=== PATIENT | female | born 1960 | race Asian ===

== ENCOUNTER 2018-09-24 22:32 | Inpatient (IN) | payer OTHER ==
[~2018-09-24] VITALS: Ht 152.4 cm; Wt 41.2 kg
[2018-09-24 23:37] VITALS: Ht 152.4 cm; Wt 41.2 kg
[2018-09-24 23:38] VITALS: BP 122/58; PULSE 68; RESP 18
--- NOTE | 2018-09-25 00:19 | HP ---
Date/Time of Note Date/Time of Note DATE: 09/25/18 TIME: 00:16 Assessment/Plan VTE Prophylaxis Risk score (from Nsg)>0 risk: 1 SCD applied (from Nsg): Yes Pharmacological prophylaxis: heparin Lines/Catheters IV Catheter Type (from Nrsg): Saline Lock Assessment/Plan Assessment/Plan 58-year-old female with no significant past medical history transferred from a [facility] for insurance reason for management of left femoral neck fracture, which is a result of a fall. PLAN -Pain management -Ortho consult -DVT prophylaxis HPI/ROS Admit Date/Time Admit Date/Time Sep 24, 2018 at 23:12 Hx of Present Illness This is a 58-year-old female with no significant past medical history who initially presented to [facility] complaining of left lower extremity pain status post fall. Patient initially fell 3 weeks ago hurting her left leg. An x-ray was done by her PCP and patient has been taking tramadol for pain. She fell again yesterday exacerbating pain on the same left lower extremity. X- ray and CT pelvis at [place] shows left femoral neck fracture. Patient was transferred to [facility] for insurance reason. PMH/Family/Social Past Medical History Past Surgical Hx: other (See HPI) Family History Significant Family History: no pertinent family hx Social History Alcohol Use: other Smoking Status: Never smoker Drug Use: none Exam/Review of Systems Vital Signs Exam Constitutional: No acute distress. Head: normocephalic, atraumatic Eyes: EOMI, PERRL Respiratory: clear to auscultation, normal air movement Cardiovascular: regular rate and rhythm, nl pulses Gastrointestinal: soft, Extremities: nl pulse Coded Allergies: No Known Allergy (Unverified , 09/24/18) Social History Smoking Status: Never smoker Exam/Review of Systems Vital Signs Vitals Vital Signs Date Temp Pulse Resp B/P (MAP) Pulse Ox O2 O2 Flow FiO2 Time Delivery Rate 09/24/18 98.2 68 18 122/58 95 Room Air 23:38 (79) Intake and Output 09/24/18 09/24/18 09/25/18 1515:00 23:00 07:00 IntakeIntake Total 200 ml OutputOutput Total 200 ml BalanceBalance 0 ml MALLORIE COLE MD Sep 25, 2018 00:19
[2018-09-25] MEDS ORDERED: NACL 0.9% 3 ML SYG IV SCH (00:30)
[2018-09-25] MEDS ORDERED: HYDROCODONE/APAP (5/325) TAB PO PRN (00:30)
[2018-09-25] MEDS ORDERED: ACETAMINOPHEN 325 MG TAB PO PRN (00:30)
[2018-09-25] MEDS ORDERED: ONDANSETRON 4 MG INJ IV PRN (00:30)
[2018-09-25 07:21] VITALS: BP 120/60; PULSE 74; RESP 18
[2018-09-25] MEDS: HEPARIN 5,000 UNIT/1 ML VIAL SC SCH ×2 (10:43→20:39)
[2018-09-25 13:14] VITALS: BP 117/58; PULSE 74; RESP 18
[2018-09-25] MEDS: HYDROCODONE/APAP (5/325) TAB PO PRN (13:39)
[2018-09-25] MEDS ORDERED: POTASSIUM CHLORIDE (SR) 20 MEQ TAB PO STA (13:47)
--- NOTE | 2018-09-25 13:48 | PN ---
Date/Time of Note Date/Time of Note DATE: 09/25/18 TIME: 13:47 Assessment/Plan VTE Prophylaxis Risk score (from Ns)>0 risk: 7 SCD applied (from [facility]): No SCD contraindicated: other Pharmacological prophylaxis: heparin Lines/Catheters IV Catheter Type (from [facility] [place]): Saline Lock Urinary Cath still in place: No Assessment/Plan Hospital Course S: Patient had no acute events overnight, apparently started on diet yesterday. Awaiting orthopedic surgery consult. O: VS- see below PE: General: lying in bed, answering questions appropriately, no acute distress HEENT: Atraumatic, normocephalic. Moist mucous membranes, clear oropharynx Neck: Supple with full range of motion. No rigidity or meningismus Lungs: Clear to auscultation bilaterally no crackles rales or wheezing Heart: Normal S1-S2, Regular rhythm and rate. No murmur, S3, or S4 Abdomen: Soft , nontender, nondistended , bowel sounds are present. No guarding no rebound tenderness Extremities: Decreased range of motion left lower extremity Neurologic: No focal deficits A/P: 58-year-old female with no significant past medical history who initially presented to [facility] complaining of left lower extremity pain status post fall, found with left femoral neck fracture. #: Status post fall: Again found with subsequent left femoral neck fracture -Continue IV fluids, pain control medications, still waiting for official orthopedic surgery consult -follow-up their recommendations -We will also consult PT and OT teams Result Diagram: 09/25/18 0446 09/25/18 0446 Results 24hrs Laboratory Tests Test 09/25/18 04:46 White Blood Count 5.5 Red Blood Count 3.53 L Hemoglobin 10.8 L Hematocrit 32.6 L Mean Corpuscular Volume 92.4 Mean Corpuscular Hemoglobin 30.6 Mean Corpuscular Hemoglobin Concent 33.1 Red Cell Distribution Width 12.5 Platelet Count 249 Mean Platelet Volume 10.1 Immature Granulocytes % 0.200 Neutrophils % 56.1 Lymphocytes % 29.5 Monocytes % 9.8 Eosinophils % 2.9 Basophils % 1.5 Nucleated Red Blood Cells % 0.0 Immature Granulocytes # 0.010 Neutrophils # 3.1 Lymphocytes # 1.6 Monocytes # 0.5 Eosinophils # 0.2 Basophils # 0.1 Nucleated Red Blood Cells # 0.0 Sodium Level 146 H Potassium Level 3.2 L Chloride Level 111 H Carbon Dioxide Level 31 Anion Gap 4 L Blood Urea Nitrogen 24 H Creatinine 0.66 Est Glomerular Filtrat Rate mL/min > 60 Glucose Level 115 Calcium Level 8.9 Phosphorus Level 3.6 Magnesium Level 2.1 Total Bilirubin 0.2 Direct Bilirubin 0.00 Indirect Bilirubin 0.2 Aspartate Amino Transf (AST/SGOT) 19 Alanine Aminotransferase (ALT/SGPT) 16 Alkaline Phosphatase 70 Total Protein 6.2 Albumin 3.3 Globulin 2.90 Albumin/Globulin Ratio 1.13 Exam/Review of Systems Exam Vitals Vital Signs Date Temp Pulse Resp B/P (MAP) Pulse Ox O2 O2 Flow FiO2 Time Delivery Rate 09/25/18 98.3 74 18 117/58 91 13:14 (77) 09/24/18 Room Air 23:38 Intake and Output 09/24/18 09/24/18 09/25/18 1515:00 23:00 07:00 IntakeIntake Total 400 ml OutputOutput Total 600 ml BalanceBalance -200 ml Results Results 24hrs Laboratory Tests Test 09/25/18 04:46 White Blood Count 5.5 Red Blood Count 3.53 L Hemoglobin 10.8 L Hematocrit 32.6 L Mean Corpuscular Volume 92.4 Mean Corpuscular Hemoglobin 30.6 Mean Corpuscular Hemoglobin Concent 33.1 Red Cell Distribution Width 12.5 Platelet Count 249 Mean Platelet Volume 10.1 Immature Granulocytes % 0.200 Neutrophils % 56.1 Lymphocytes % 29.5 Monocytes % 9.8 Eosinophils % 2.9 Basophils % 1.5 Nucleated Red Blood Cells % 0.0 Immature Granulocytes # 0.010 Neutrophils # 3.1 Lymphocytes # 1.6 Monocytes # 0.5 Eosinophils # 0.2 Basophils # 0.1 Nucleated Red Blood Cells # 0.0 Sodium Level 146 H Potassium Level 3.2 L Chloride Level 111 H Carbon Dioxide Level 31 Anion Gap 4 L Blood Urea Nitrogen 24 H Creatinine 0.66 Est Glomerular Filtrat Rate mL/min > 60 Glucose Level 115 Calcium Level 8.9 Phosphorus Level 3.6 Magnesium Level 2.1 Total Bilirubin 0.2 Direct Bilirubin 0.00 Indirect Bilirubin 0.2 Aspartate Amino Transf (AST/SGOT) 19 Alanine Aminotransferase (ALT/SGPT) 16 Alkaline Phosphatase 70 Total Protein 6.2 Albumin 3.3 Globulin 2.90 Albumin/Globulin Ratio 1.13 Medications Medication Current Medications IV Flush (NS 3 ml) 3 ml PER PROTOCOL IV ; Start 09/25/18 at 00:30 Ondansetron HCl (Zofran Inj) 4 mg Q6H PRN IV NAUSEA/VOMITING; Start 09/25/18 at 00:30 Acetaminophen (Tylenol Tab) 650 mg Q6H PRN PO .PAIN 1-3 OR TEMP; Start 09/25/18 at 00:30 Acetaminophen/ Hydrocodone Bitart ([place] (5/325)) 1 tab Q6H PRN PO .MOD PAIN 4- 6 Last administered on 09/25/18at 13:39; Admin Dose 1 TAB; Start 09/25/18 at 00:30 Acetaminophen/ Hydrocodone Bitart ([place] (5/325)) 2 tab Q6H PRN PO .SEVERE PAIN 7-10; Start 09/25/18 at 00:30 Heparin Sodium (Porcine) (Heparin (5000 Units/1ml)) 5,000 unit Q12 SC Last administered on 09/25/18at 10:43; Admin Dose 5,000 UNIT; Start 09/25/18 at 09:00 CARLOS AMATO Sep 25, 2018 13:48
[2018-09-25 19:30] VITALS: BP 134/60; PULSE 79; RESP 20
[2018-09-26] MEDS: HYDROCODONE/APAP (5/325) TAB PO PRN (01:32)
[2018-09-26 02:10] VITALS: BP 114/69; PULSE 63; RESP 20
[2018-09-26 07:20] VITALS: BP 107/56; PULSE 68; RESP 17
--- NOTE | 2018-09-26 10:12 | PN ---
Date/Time of Note Date/Time of Note DATE: 09/26/18 TIME: 10:11 Assessment/Plan VTE Prophylaxis Risk score (from Ns)>0 risk: 6 SCD applied (from Ns): No SCD contraindicated: other Pharmacological prophylaxis: heparin Lines/Catheters IV C[facility] (from [facility] Saline Lock Urinary Cath still in place: No Assessment/Plan Hospital Course S: Patient had no acute events overnight, waiting to be seen by orthopedic surgery team. O: VS- see below PE: General: lying in bed, answering questions appropriately, no acute distress HEENT: Atraumatic, normocephalic. Moist mucous membranes, clear oropharynx Neck: Supple with full range of motion. No rigidity or meningismus Lungs: Clear to auscultation bilaterally no crackles rales or wheezing Heart: Normal S1-S2, Regular rhythm and rate. No murmur, S3, or S4 Abdomen: Soft , nontender, nondistended , bowel sounds are present. No guarding no rebound tenderness Extremities: Decreased range of motion left lower extremity Neurologic: No focal deficits A/P: 58-year-old female with no significant past medical history who initially presented to [facility] complaining of left lower extremity pain status post fall, found with left femoral neck fracture. #: Status post fall: Again found with subsequent left femoral neck fracture. -Continue IV fluids, pain control medications, still waiting for official orthopedic surgery consult -follow-up their recommendations -Follow-up recommendations from PT and OT teams Result Diagram: 09/26/18 0431 09/26/18 0431 Results 24hrs Laboratory Tests Test 09/26/18 04:31 White Blood Count 6.5 Red Blood Count 3.49 L Hemoglobin 10.6 L Hematocrit 32.7 L Mean Corpuscular Volume 93.7 Mean Corpuscular Hemoglobin 30.4 Mean Corpuscular Hemoglobin Concent 32.4 Red Cell Distribution Width 12.6 Platelet Count 233 Mean Platelet Volume 9.9 Immature Granulocytes % 0.500 H Neutrophils % 58.6 Lymphocytes % 30.2 Monocytes % 6.2 Eosinophils % 3.4 Basophils % 1.1 Nucleated Red Blood Cells % 0.0 Immature Granulocytes # 0.030 Neutrophils # 3.8 Lymphocytes # 2.0 Monocytes # 0.4 Eosinophils # 0.2 Basophils # 0.1 Nucleated Red Blood Cells # 0.0 Sodium Level 145 H Potassium Level 4.3 Chloride Level 110 Carbon Dioxide Level 31 Anion Gap 4 L Blood Urea Nitrogen 18 Creatinine 0.53 Est Glomerular Filtrat Rate mL/min > 60 Glucose Level 103 Calcium Level 9.1 Phosphorus Level 3.8 Magnesium Level 2.2 Exam/Review of Systems Exam Vitals Vital Signs Date Temp Pulse Resp B/P (MAP) Pulse Ox O2 O2 Flow FiO2 Time Delivery Rate 09/26/18 98.1 68 17 107/56 97 07:20 (73) 09/26/18 Room Air 02:10 Intake and Output 09/25/18 09/25/18 09/26/18 1515:00 23:00 07:00 IntakeIntake Total 300 ml OutputOutput Total 1 ml 300 ml BalanceBalance 299 ml -300 ml Results Results 24hrs Laboratory Tests Test 09/26/18 04:31 White Blood Count 6.5 Red Blood Count 3.49 L Hemoglobin 10.6 L Hematocrit 32.7 L Mean Corpuscular Volume 93.7 Mean Corpuscular Hemoglobin 30.4 Mean Corpuscular Hemoglobin Concent 32.4 Red Cell Distribution Width 12.6 Platelet Count 233 Mean Platelet Volume 9.9 Immature Granulocytes % 0.500 H Neutrophils % 58.6 Lymphocytes % 30.2 Monocytes % 6.2 Eosinophils % 3.4 Basophils % 1.1 Nucleated Red Blood Cells % 0.0 Immature Granulocytes # 0.030 Neutrophils # 3.8 Lymphocytes # 2.0 Monocytes # 0.4 Eosinophils # 0.2 Basophils # 0.1 Nucleated Red Blood Cells # 0.0 Sodium Level 145 H Potassium Level 4.3 Chloride Level 110 Carbon Dioxide Level 31 Anion Gap 4 L Blood Urea Nitrogen 18 Creatinine 0.53 Est Glomerular Filtrat Rate mL/min > 60 Glucose Level 103 Calcium Level 9.1 Phosphorus Level 3.8 Magnesium Level 2.2 Medications Medication Current Medications IV Flush (NS 3 ml) 3 ml PER PROTOCOL IV ; Start 09/25/18 at 00:30 Ondansetron HCl (Zofran Inj) 4 mg Q6H PRN IV NAUSEA/VOMITING; Start 09/25/18 at 00:30 Acetaminophen (Tylenol Tab) 650 mg Q6H PRN PO .PAIN 1-3 OR TEMP; Start 09/25/18 at 00:30 Acetaminophen/ Hydrocodone Bitart ([place] (5/325)) 1 tab Q6H PRN PO .MOD PAIN 4- 6 Last administered on 09/26/18at 01:32; Admin Dose 1 TAB; Start 09/25/18 at 00:30 Acetaminophen/ Hydrocodone Bitart ([place] (5/325)) 2 tab Q6H PRN PO .SEVERE PAIN 7-10; Start 09/25/18 at 00:30 Heparin Sodium (Porcine) (Heparin (5000 Units/1ml)) 5,000 unit Q12 SC Last administered on 09/25/18at 20:39; Admin Dose 5,000 UNIT; Start 09/25/18 at 09:00; Status Hold CARLOS AMATO Sep 26, 2018 10:12
[2018-09-26 14:57] VITALS: BP 112/58; PULSE 71; RESP 18
[2018-09-26 20:38] VITALS: BP 108/55; PULSE 93; RESP 18
[2018-09-27] VITALS (22 sets, daily range): BP systolic 80–137; BP diastolic 41–70; PULSE 70–92; RESP 13–21
[2018-09-27] MEDS: DEXTROSE 5%-0.45% NACL 1,000 ML IV SCH ×3 (07:00→21:58)
--- NOTE | 2018-09-27 09:33 | HPN ---
Date/Time of Note Date/Time of Note DATE: 09/27/18 TIME: 09:33 Interval H&P Admission Note Pt. seen H&P reviewed: No system changes UMER FRIEND MD Sep 27, 2018 09:33
--- NOTE | 2018-09-27 09:53 | CONS ---
DATE OF ADMISSION: 09/24/2018 DATE OF CONSULTATION: 09/26/2018 HISTORY OF PRESENT ILLNESS: The patient is a 58-year-old female without any unusual past medical his tory who was transferred on 09/24/2018 from [facility] because of the insurance arrangement. She obviously had a fall about 1 month ago after missing 2 final steps in the stairs. Following th e fall, she was having severe pain and limit of motion. However, she did not seek any medical attent ion right away until she showed up in the emergency room of the [facility] around 09/24/2018 . PHYSICAL EXAMINATION: My examination revealed a 58-year-old female who is not in any acute distress. She was keeping her left hip flexed. Attempted range of motion of the left hip was provoking sever e pain and discomfort. There were no signs of acute neurovascular compromise involving the left lowe r extremity. IMAGING: X-rays and CT scan of the pelvis revealed a subcapital femoral neck fracture of the left hi p. DIAGNOSTIC IMPRESSION: Subcapital femoral neck fracture of the left hip. TREATMENT PLAN: Surgery for hemiarthroplasty of the left hip as soon as she can be medically cleared for surgery. Dictated By: FABRICIO FRIEND MD IK/NTS Conf#: [id number] DID#: [id number] CC: FABRICIO FRIEND MD; CARLOS AMATO; MALLORIE COLE MD;*End*
--- NOTE | 2018-09-27 10:39 | PN ---
Date/Time of Note Date/Time of Note DATE: 09/27/18 TIME: 10:34 Assessment/Plan VTE Prophylaxis Risk score (from Nsg)>0 risk: 8 SCD applied (from Nsg): Yes Pharmacological prophylaxis: heparin Lines/Catheters IV Catheter Type (from Nrsg): Peripheral IV Urinary Cath still in place: No Assessment/Plan Assessment/Plan 58-year-old woman with no significant past medical history who initially presented to [facility] complaining of left lower extremity pain status post fall, found with left femoral neck fracture. #L femoral neck fracture - Due to mechanical fall where she mis-estimated the distance to the next step going downstairs. No syncope. - Continue IV fluids, analgesia. - Patient reports ability to climb a flight of stairs with no chest pain or SOB, indicating >4 METS. She denies heart failure symptoms. She is overall in good health. She is medically optimized for surgery, no further cardiac or medical workup needed prior to OR. - Dr. Del Toro consulted - Rosanne-operative anticoagulation per orthopedics. Result Diagram: 09/26/181 09/26/18 0431 Subjective 24 Hr Interval Summary Free Text/Dictation No acute overnight events. Patient denies any history of chest pain or SOB on exertion, no orthopnea, PND, or other signs/symptoms of CHF or CAD. Of note, she does report an episode about a month ago during which she was very anxious and had a few seconds of heart palpitations which self-resolved. Exam/Review of Systems Exam Vitals Vital Signs Date Temp Pulse Resp B/P (MAP) Pulse Ox O2 O2 Flow FiO2 Time Delivery Rate 09/27/18 98.7 70 18 112/57 96 07:32 (75) 09/27/18 Room Air 01:36 Intake and Output 09/26/18 09/26/18 09/27/18 1414:59 22:59 06:59 IntakeIntake Total 200 ml 440 ml OutputOutput Total 1 ml BalanceBalance 200 ml 439 ml Exam General: lying in bed, answering questions appropriately, no acute distress HEENT: Atraumatic, normocephalic. Moist mucous membranes, clear oropharynx Neck: Supple with full range of motion. No rigidity or meningismus Lungs: Clear to auscultation bilaterally no crackles rales or wheezing Heart: Normal S1-S2, Regular rhythm and rate. No murmur, S3, or S4 Abdomen: Soft , nontender, nondistended , bowel sounds are present. No guarding no rebound tenderness Extremities: L hip range of motion limited by pain. Nontender to palpation. No hematoma or swelling. Peripheral pulses, toe wiggle, and sensation intact. Medications Medication Current Medications IV Flush (NS 3 ml) 3 ml PER PROTOCOL IV Last administered on 09/26/18at 21:27; Admin Dose 3 ML; Start 09/25/18 at 00:30 Ondansetron HCl (Zofran Inj) 4 mg Q6H PRN IV NAUSEA/VOMITING; Start 09/25/18 at 00:30 Acetaminophen (Tylenol Tab) 650 mg Q6H PRN PO .PAIN 1-3 OR TEMP; Start 09/25/18 at 00:30 Acetaminophen/ Hydrocodone Bitart ([place] (5/325)) 1 tab Q6H PRN PO .MOD PAIN 4- 6 Last administered on 09/26/18at 01:32; Admin Dose 1 TAB; Start 09/25/18 at 00:30 Acetaminophen/ Hydrocodone Bitart ([place] (5/325)) 2 tab Q6H PRN PO .SEVERE PAIN 7-10; Start 09/25/18 at 00:30 Heparin Sodium (Porcine) (Heparin (5000 Units/1ml)) 5,000 unit Q12 SC Last administered on 09/25/18at 20:39; Admin Dose 5,000 UNIT; Start 09/25/18 at 09:00; Status Hold Dextrose/Sodium Chloride 1,000 ml @ 100 mls/hr Q10H IV Last administered on 09/27/18at 07:00; Admin Dose 100 MLS/HR; Start 09/27/18 at 07:00 DENTON LUCAS MD Sep 27, 2018 10:38
[2018-09-27] MEDS ORDERED: POLYMYXIN/BACITRACIN 1L IRRIG ONE (16:54)
--- NOTE | 2018-09-27 16:55 | PREAC ---
Date/Time of Note Date/Time of Note DATE: 09/27/18 TIME: 16:53 Anesthesia Eval and Record Evaluation Time Pre-Procedure Interview DATE: 09/27/18 TIME: 16:53 Age 58 Sex female NPO: 8 hrs Preoperative diagnosis Lt Hip Fracture Planned procedure Lt Hip hemiarthroplasty Past Medical History Past Medical History: Includes Cardio: HTN Surgery & Anesthesia Issues No known issue Meds Anticoagulation: No Beta Ye within 24 hr: No Reason Beta Ye not given: Pt. not on B-Ye Current Medications IV Flush (NS 3 ml) 3 ml PER PROTOCOL IV Last administered on 09/26/18at 21:27; Admin Dose 3 ML; Start 09/25/18 at 00:30 Ondansetron HCl (Zofran Inj) 4 mg Q6H PRN IV NAUSEA/VOMITING; Start 09/25/18 at 00:30 Acetaminophen (Tylenol Tab) 650 mg Q6H PRN PO .PAIN 1-3 OR TEMP; Start 09/25/18 at 00:30 Acetaminophen/ Hydrocodone Bitart ([place] (5/325)) 1 tab Q6H PRN PO .MOD PAIN 4- 6 Last administered on 09/26/18at 01:32; Admin Dose 1 TAB; Start 09/25/18 at 00:30 Acetaminophen/ Hydrocodone Bitart ([place] (5/325)) 2 tab Q6H PRN PO .SEVERE PAIN 7-10; Start 09/25/18 at 00:30 Heparin Sodium (Porcine) (Heparin (5000 Units/1ml)) 5,000 unit Q12 SC Last administered on 09/25/18at 20:39; Admin Dose 5,000 UNIT; Start 09/25/18 at 09:00; Status Hold Dextrose/Sodium Chloride 1,000 ml @ 100 mls/hr Q10H IV Last administered on 09/27/18at 07:00; Admin Dose 100 MLS/HR; Start 09/27/18 at 07:00 Meds reviewed: Yes Allergies Coded Allergies: No Known Allergy (Unverified , 09/24/18) Allergies Reviewed: Yes Labs/Studies Labs Reviewed: Reviewed by anesthesiologist Result Diagram: 09/26/18 0431 09/26/18430 test: N/A Pre-procedure Exam Last vitals Vital Signs Date Temp Pulse Resp B/P (MAP) Pulse Ox O2 O2 Flow FiO2 Time Delivery Rate 09/27/18 98.2 72 19 121/62 98 14:08 (81) 09/27/18 Room Air 01:36 Airway: Adequate mouth opening, Adequate thyromental dist Mallampati: Mallampati II Teeth: Normal Lung: Normal Heart: Normal ASA Physical Status ASA physical status: 3 Emergency: None Planned Anesthetic General/MAC: LMA Neuraxial: Spinal Planned Pain Management Sub-arachniod narcotics, Parenteral pain med Pre-operative Attestations Prior to commencing anesthesia and surgery, the patient was re-evaluated, there was verification of: *The patient's identity *The results of appropriate recent lab work and preoperative vital signs *The above evaluation not changing prior to induction *Anesthetic plan, risk benefits, alternative and complications discussed with patient/family; questions answered; patient/family understands, accepts and wishes to proceed. LISA CHEN MD Sep 27, 2018 16:55
[2018-09-27] MEDS ORDERED: FENTAnyl 50 MCG/ML VIAL ONE ×2 (17:01→18:10)
[2018-09-27] MEDS ORDERED: MIDAZOLAM 1 MG/ML 2 ML INJ ONE (17:01)
[2018-09-27] MEDS ORDERED: VANCOMYCIN 1 GM INJ ONE (18:45)
[2018-09-27] MEDS ORDERED: ETOMIDATE 20 MG INJ ONE (19:19)
[2018-09-27] MEDS ORDERED: ONDANSETRON 4 MG INJ ONE (19:19)
[2018-09-27] MEDS ORDERED: CEFAZOLIN 1 GM INJ ONE (19:19)
[2018-09-27] MEDS ORDERED: LIDOCAINE 2% (SDV) 5 ML INJ ONE (19:19)
[2018-09-27] MEDS ORDERED: morphine SULFATE/PF (10 MG/10 ML) INJ ONE (19:20)
--- NOTE | 2018-09-27 19:47 | PAC ---
Date/Time of Note Date/Time of Note DATE: 09/27/18 TIME: 19:46 Post-Anesthesia Notes Post-Anesthesia Note Last documented vital signs Vital Signs Date Temp Pulse Resp B/P (MAP) Pulse Ox O2 O2 Flow FiO2 Time Delivery Rate 09/27/18 98.1 19:46 09/27/18 72 19 121/62 98 14:08 (81) 09/27/18 Room Air 01:36 Activity: WNL Respiratory function: WNL Cardiovascular function: WNL Mental status: Baseline Pain reasonably controlled: Yes Hydration appropriate: Yes Nausea/Vomiting absent: Yes Comments BP:100/58, P:92, Spo2:100%, T:98, LISA CHEN MD Sep 27, 2018 19:47
[2018-09-27] MEDS ORDERED: DIPHENHYDRAMINE 50 MG INJ IV PRN (20:00)
[2018-09-27] MEDS ORDERED: MEPERIDINE 25 MG INJ IV PRN (20:00)
[2018-09-27] MEDS ORDERED: HYDROmorphONE 1 MG/5 ML IV SYRINGE IV PRN ×2 (20:00)
[2018-09-27] MEDS ORDERED: FENTAnyl 50 MCG/ML VIAL IV PRN (20:00)
[2018-09-27] MEDS ORDERED: ONDANSETRON 4 MG INJ IV PRN (20:00)
[2018-09-27] MEDS ORDERED: METOCLOPRAMIDE 10 MG INJ IV PRN (20:00)
[2018-09-27] MEDS ORDERED: ALBUMIN HUMAN 5% 250 ML IV ONE (20:30)
[2018-09-27] MEDS ORDERED: LACTATED RINGER'S 500 ML IV ONE (20:30)
[2018-09-27] MEDS ORDERED: EPHEDrine SULFATE 50 MG/5 ML SYG IV PRN (20:30)
--- NOTE | 2018-09-27 20:43 | SIPON ---
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
[2018-09-27] MEDS ORDERED: morphine 4 MG/ML VIAL IV PRN (21:00)
[2018-09-27] MEDS: CEFAZOLIN 1 GM/50 ML (PMX) 50 ML IVPB SCH (21:55)
--- NOTE | 2018-09-27 21:57 | OPR ---
DATE OF OPERATION: 09/27/2018 PREOPERATIVE DIAGNOSIS: Femoral neck fracture of the left hip. POSTOPERATIVE DIAGNOSES: Femoral neck fracture of the left hip. Severe osteopetrosis of the femoral neck and proximal femur of the right hip. PROCEDURE PERFORMED: Hemiarthroplasty of the left hip. ANESTHESIA: General anesthesia. SURGEON: Fabricio Friend MD PROCEDURE AND FINDINGS: Under general anesthesia, the patient was placed on right lateral decubitus position with the left side up. The usual prep and drape was done exposing the left hip and left low er extremity. Left hip was approached through the posterolateral incision. On opening the area, rather extensive b leedings were encountered. After splitting muscles and fascia, left hip was identified and this was opened and obvious subcapital femoral neck fracture was identified. However, during the removal of t he femoral head, it was noted that there was a severe hardness of the skeletal structures laid off hi s osteopetrosis. We removed the femoral head, it was very heavy and showing a marble like qualities. The trial reduction was carried out. After cleaning the acetabular cavity and after several trials , it was my size 42 mm trial bipolar cup was providing best fit. After packing the acetabular cavity with 2 Ray-Kristel sponges. Attention was directed to the proximal femur. Initial attempt reveal ed a rather rigid hard quality of bone showing good resistance to the broaches with some difficulties . Initial preparation was carried out using box osteotome and canal finders. Because of the extreme hardness of the skeletal tissues, an intraoperative x-rays of the proximal femur have to be obtained in order to confirm the satisfactory position of the canal finders and first broaches. Broaching wa s carried out up to size 3 and further broaching seems to be somewhat dangerous with the risk of frac ture, with the size 3 broaches in, in a slightly proud position. The trial components were assembled and joint was reduced. After several trials, it was decided that size 3 femoral stem in a standard setting, connected to 0 neck and 42 mm cup would be the best choice. After removing the broaches, an actual stem in the size 3 in a standard setting was pounded in and this was connected to 0 neck, 42 mm bipolar cup. Joint was reduced. The range of motion and stability were satisfactory. Leg length was comparable. After irrigation and hemostasis, the capsules were repaired and further closure was carried out using 0 Vicryl for muscle and fascia. Hemostasis and irrigation, further closure was ca rried out using #1 PDS for capsules and #2 Vicryl for muscle and fascia after closing subcutaneous ti ssues with 2-0 Vicryl. Final skin closure was carried out with skin venkatesh. The usual sterile pres sure dressings were applied. The patient tolerated the entire procedure very well and was sent to the recovery room in good condit ion. Dictated By: FABRICIO FRIEND MD IK/NTS Conf#: [id number] DID#: [id number] CC: MALLORIE COEL MD;*EndCC*
[2018-09-28] VITALS (9 sets, daily range): BP systolic 85–127; BP diastolic 46–62; PULSE 74–105; RESP 18
[2018-09-28] MEDS: CEFAZOLIN 1 GM/50 ML (PMX) 50 ML IVPB SCH ×2 (01:09→13:04)
[2018-09-28] MEDS: DEXTROSE 5%-0.45% NACL 1,000 ML IV SCH ×2 (08:15→18:37)
[2018-09-28] MEDS ORDERED: ENOXAPARIN 40 MG/0.4 ML SYG SC SCH (09:00)
[2018-09-28] MEDS: HYDROCODONE/APAP (5/325) TAB PO PRN ×2 (13:04→18:39)
--- NOTE | 2018-09-28 16:24 | PN ---
Date/Time of Note Date/Time of Note DATE: 09/28/18 TIME: 16:20 Assessment/Plan VTE Prophylaxis Risk score (from Nsg)>0 risk: 2 SCD applied (from Nsg): Yes Pharmacological prophylaxis: LMWH Lines/Catheters IV Catheter Type (from Nrsg): Peripheral IV Urinary Cath still in place: Yes Reason Cath still needed: other (indicate) (not needed) Assessment/Plan Assessment/Plan 58-year-old woman with no significant past medical history who initially presented to [facility] complaining of left lower extremity pain status post fall, found with left femoral neck fracture. #L femoral neck fracture - Due to mechanical fall where she mis-estimated the distance to the next step going downstairs. No syncope. - Dr. Del Toro consulted - s/p surgical repair 09/27/18 - Rosanne-operative anticoagulation per orthopedics. - Continue PT, OT. Result Diagram: 09/27/18203909/27/182039 Subjective 24 Hr Interval Summary Free Text/Dictation Patient went for L hip repair last night. Today doing well, ambulating with PT. Exam/Review of Systems Exam Vitals Vital Signs Date Temp Pulse Resp B/P (MAP) Pulse Ox O2 O2 Flow FiO2 Time Delivery Rate 09/28/18 120/62 14:05 (81) 09/28/18 99.4 105 18 100 13:43 09/28/18 Room Air 01:26 09/27/18 8.0 19:45 Intake and Output 09/27/18 09/27/18 09/28/18 1515:00 23:00 07:00 IntakeIntake Total 800 ml 1950 ml 50 ml OutputOutput Total 250 ml 600 ml 600 ml BalanceBalance 550 ml 1350 ml -550 ml Exam General: lying in bed, answering questions appropriately, no acute distress HEENT: Atraumatic, normocephalic. Moist mucous membranes, clear oropharynx Neck: Supple with full range of motion. No rigidity or meningismus Lungs: Clear to auscultation bilaterally no crackles rales or wheezing Heart: Normal S1-S2, Regular rhythm and rate. No murmur, S3, or S4 Abdomen: Soft , nontender, nondistended , bowel sounds are present. No guarding no rebound tenderness Extremities: L hip range of motion limited by pain. Nontender to palpation. No hematoma or swelling. Peripheral pulses, toe wiggle, and sensation intact. Results Results 24hrs Laboratory Tests Test 09/27/18 20:40 White Blood Count 20.0 #H Red Blood Count 2.94 L Hemoglobin 8.9 L Hematocrit 27.9 L Mean Corpuscular Volume 94.9 Mean Corpuscular Hemoglobin 30.3 Mean Corpuscular Hemoglobin Concent 31.9 L Red Cell Distribution Width 12.5 Platelet Count 188 Mean Platelet Volume 9.7 Immature Granulocytes % 0.600 H Neutrophils % 80.1 H Lymphocytes % 14.5 L Monocytes % 4.0 Eosinophils % 0.5 Basophils % 0.3 Nucleated Red Blood Cells % 0.0 Immature Granulocytes # 0.120 H Neutrophils # 16.0 H Lymphocytes # 2.9 Monocytes # 0.8 Eosinophils # 0.1 Basophils # 0.1 Nucleated Red Blood Cells # 0.0 Sodium Level 143 Potassium Level 4.1 Chloride Level 110 Carbon Dioxide Level 24 Anion Gap 9 # Blood Urea Nitrogen 13 Creatinine 0.46 Est Glomerular Filtrat Rate mL/min > 60 Glucose Level 150 Calcium Level 8.8 Medications Medication Current Medications IV Flush (NS 3 ml) 3 ml PER PROTOCOL IV Last administered on 09/26/18at 21:27; Admin Dose 3 ML; Start 09/25/18 at 00:30 Ondansetron HCl (Zofran Inj) 4 mg Q6H PRN IV NAUSEA/VOMITING; Start 09/25/18 at 00:30 Acetaminophen (Tylenol Tab) 650 mg Q6H PRN PO .PAIN 1-3 OR TEMP Last administered on 09/28/18 08:25; Admin Dose 650 MG; Start 09/25/18 at 00:30 Dextrose/Sodium Chloride 1,000 ml @ 100 mls/hr Q10H IV Last administered on 09/28/18at 08:15; Admin Dose 100 MLS/HR; Start 09/27/18 at 07:00 Enoxaparin Sodium (Lovenox) 40 mg DAILY SC Last administered on 09/28/18at 08:17; Admin Dose 40 MG; Start 09/28/18 at 09:00 Morphine Sulfate (morphine) 3 mg Q3H PRN IV SEVERE PAIN LEVEL 7-10; Start 09/27/18 at 21:00 Acetaminophen/ Hydrocodone Bitart ([place] (5/325)) 1 tab Q3H PRN PO MODERATE PA IN LEVEL 4-6 Last administered on 09/28/18at 13:04; Admin Dose 1 TAB; Start 09/27/18 at 21:00 DENTON LUCAS MD Sep 28, 2018 16:24
[2018-09-29] VITALS (9 sets, daily range): BP systolic 94–122; BP diastolic 46–68; PULSE 78–104; RESP 17–20
[2018-09-29] MEDS: DEXTROSE 5%-0.45% NACL 1,000 ML IV SCH ×2 (03:28→19:00)
[2018-09-29] MEDS ORDERED: SOD CHLORIDE 0.9% 250 ML IV* ONE (09:23)
--- NOTE | 2018-09-29 14:55 | PN ---
Date/Time of Note Date/Time of Note DATE: 09/29/18 TIME: 14:52 Assessment/Plan VTE Prophylaxis Risk score (from Ns)>0 risk: 1 SCD applied (from Ns): Yes Pharmacological prophylaxis: LMWH Lines/Catheters IV Catheter Type (from [facility]): Peripheral IV Urinary Cath still in place: No Assessment/Plan Assessment/Plan 58-year-old woman with no significant past medical history who initially p resented to [facility] complaining of left lower extremity pain status post fall, found with left femoral neck fracture. #L femoral neck fracture - Due to mechanical fall where she mis-estimated the distance to the next step going downstairs. No syncope. - Dr. Del Toro consulted - s/p surgical repair 09/27/18 - Rosanne-operative anticoagulation per orthopedics. - Continue PT, OT. #Acute blood loss anemia - Associated with surgery. - Transfuse to Hgb >7 or for symptomatic anemia. Result Diagram: 09/29/18 0634 09/29/18 0434 Subjective 24 Hr Interval Summary Free Text/Dictation No acute overnight events. Patient had Hgb drop after surgery. Transfusing 2 units today. Otherwise doing well, no complaints. Exam/Review of Systems Exam Vitals Vital Signs Date Temp Pulse Resp B/P (MAP) Pulse Ox O2 O2 Flow FiO2 Time Delivery Rate 09/29/18 98.9 18 118/68 99 Room Air 13:00 (85) 09/29/18 78 10:57 09/27/18 8.0 19:45 Intake and Output 09/28/18 09/28/18 09/29/18 1414:59 22:59 06:59 IntakeIntake Total 150 ml 1000 ml 1400 ml BalanceBalance 150 ml 1000 ml 1400 ml Exam General: lying in bed, answering questions appropriately, no acute distress HEENT: Atraumatic, normocephalic. Moist mucous membranes, clear oropharynx Neck: Supple with full range of motion. No rigidity or meningismus Lungs: Clear to auscultation bilaterally no crackles rales or wheezing Heart: Normal S1-S2, Regular rhythm and rate. No murmur, S3, or S4 Abdomen: Soft , nontender, nondistended , bowel sounds are present. No guarding no rebound tenderness Extremities: Dressing clean, slightly bloody. Nontender to palpation. No hematoma or swelling. Peripheral pulses, toe wiggle, and sensation intact. Results Results 24hrs Laboratory Tests Test 09/29/18 04:34 09/29/18 06:34 White Blood Count 10.7 # Red Blood Count 1.80 #L Hemoglobin 5.6 #*L 5.4 *L Hematocrit 17.0 #L 16.6 L Mean Corpuscular Volume 94.4 Mean Corpuscular Hemoglobin 31.1 Mean Corpuscular Hemoglobin Concent 32.9 Red Cell Distribution Width 12.9 Platelet Count 139 #L Mean Platelet Volume 10.2 Immature Granulocytes % 0.700 H Neutrophils % 82.6 H Segmented Neutrophils % (Manual) 85 H Band Neutrophils % (Manual) 3 Lymphocytes % 9.3 L Lymphocytes % (Manual) 10 L Monocytes % 6.6 Monocytes % (Manual) 1 Eosinophils % 0.5 Basophils % 0.3 Basophils % (Manual) 1 Nucleated Red Blood Cells % 0.0 Immature Granulocytes # 0.070 H Neutrophils # 8.9 H Neutrophils # (Manual) 9.1 H Band Neutrophils # 0.3 Lymphocytes (Manual) 1.0 Lymphocytes # 1.0 Monocytes # 0.7 Monocytes # (Manual) 0.1 L Eosinophils # 0.1 Basophils # 0.0 Basophils # (Manual) 0.1 H Nucleated Red Blood Cells # 0.0 Platelet Estimate DECREASED Polychromasia 2+ Hypochromasia 2+ Anisocytosis 1+ Microcytosis 1+ Sodium Level 141 Potassium Level 3.3 L Chloride Level 109 Carbon Dioxide Level 27 Anion Gap 5 Blood Urea Nitrogen 6 L Creatinine 0.46 Est Glomerular Filtrat Rate mL/min > 60 Glucose Level 172 Calcium Level 8.2 L Phosphorus Level 2.7 Magnesium Level 1.7 Medications Medication Current Medications IV Flush (NS 3 ml) 3 ml PER PROTOCOL IV Last administered on 09/26/18at 21:27; Admin Dose 3 ML; Start 09/25/18 at 00:30 Ondansetron HCl (Zofran Inj) 4 mg Q6H PRN IV NAUSEA/VOMITING; Start 09/25/18 at 00:30 Acetaminophen (Tylenol Tab) 650 mg Q6H PRN PO .PAIN 1-3 OR TEMP Last administered on 09/28/18at 08:25; Admin Dose 650 MG; Start 09/25/18 at 00:30 Dextrose/Sodium Chloride 1,000 ml @ 100 mls/hr Q10H IV Last administered on 09/29/18at 03:28; Admin Dose 100 MLS/HR; Start 09/27/18 at 07:00 Morphine Sulfate (morphine) 3 mg Q3H PRN IV SEVERE PAIN LEVEL 7-10 Last administered on 09/29/18at 10:36; Admin Dose 3 MG; Start 09/27/18 at 21:00 Acetaminophen/ Hydrocodone Bitart ([place] (5/325)) 1 tab Q3H PRN PO MODERATE PAIN LEVEL 4-6 Last administered on 09/28/18at 18:39; Admin Dose 1 TAB; Start 09/27/18 at 21:00 DENTON LUCAS MD September 29, 2018 14:55
[2018-09-29] MEDS ORDERED: POTASSIUM CHLORIDE (SR) 20 MEQ TAB PO STA (20:52)
[2018-09-29] MEDS: DOCUSATE SODIUM 100 MG CAP PO SCH (23:06)
[2018-09-29] MEDS: POLYETHYLENE GLYCOL 17 GM PACKET PO SCH (23:06)
[2018-09-30] MEDS: DEXTROSE 5%-0.45% NACL 1,000 ML IV SCH (00:30)
[2018-09-30 02:00] VITALS: BP 117/64; PULSE 101; RESP 20
[2018-09-30 08:23] VITALS: BP 104/68; PULSE 89; RESP 18
[2018-09-30] MEDS: DOCUSATE SODIUM 100 MG CAP PO SCH ×3 (08:47→21:30)
[2018-09-30] MEDS: POLYETHYLENE GLYCOL 17 GM PACKET PO SCH (08:47)
[2018-09-30] MEDS: HYDROCODONE/APAP (5/325) TAB PO PRN ×2 (11:02→21:36)
[2018-09-30] MEDS: RIVAROXABAN 10 MG TABLET PO SCH (12:03)
--- NOTE | 2018-09-30 12:55 | PN ---
Date/Time of Note Date/Time of Note DATE: 09/30/18 TIME: 12:53 Assessment/Plan VTE Prophylaxis Risk score (from Ns)>0 risk: 4 SCD applied (from Ns): Yes Pharmacological prophylaxis: rivaroxaban Lines/Catheters IV Catheter Type (from [facility]): [place] Urinary Cath still in place: No Assessment/Plan Assessment/Plan 58-year-old woman with no significant past medical history who initially presented to [facility] complaining of left lower extremity pain status post fall, found with left femoral neck fracture. #L femoral neck fracture - Due to mechanical fall where she mis-estimated the distance to the next step going downstairs. No syncope. - Dr. Del Toro consulted - s/p surgical repair 09/27/18 - Will start xarelto. Plan to discharge on 10 days total. - Continue PT, OT. #Acute blood loss anemia - Associated with surgery. - Transfuse to Hgb >7 or for symptomatic anemia. Result Diagram: 09/30/18 0446 09/30/18 0446 Results 24hrs Laboratory Tests Test 09/29/18 19:09 09/30/18 04:46 09/30/18 07:15 Hemoglobin 9.7 #L 10.0 L Hematocrit 28.5 #L 29.5 L White Blood Count 10.5 Red Blood Count 3.26 #L Mean Corpuscular Volume 90.5 Mean Corpuscular Hemoglobin 30.7 Mean Corpuscular 33.9 Hemoglobin Concent Red Cell Distribution Width 14.0 Platelet Count 149 Mean Platelet Volume 9.9 Immature Granulocytes % 0.700 H Neutrophils % 78.8 H Lymphocytes % 12.3 L Monocytes % 7.0 Eosinophils % 0.8 Basophils % 0.4 Nucleated Red Blood Cells % 0.0 Immature Granulocytes # 0.070 H Neutrophils # 8.3 H Lymphocytes # 1.3 Monocytes # 0.7 Eosinophils # 0.1 Basophils # 0.0 Nucleated Red Blood Cells # 0.0 Sodium Level 142 Potassium Level 4.2 Chloride Level 112 H Carbon Dioxide Level 24 Anion Gap 6 Blood Urea Nitrogen 6 L Creatinine 0.39 L Est Glomerular Filtrat > 60 Rate mL/min Glucose Level 164 Calcium Level 8.5 Phosphorus Level 2.4 L Magnesium Level 1.9 Lab Scanned Report BLOOD TRANSFUSION Subjective 24 Hr Interval Summary Free Text/Dictation No acute overnight events. Patient ambulating with PT, doing well. Exam/Review of Systems Exam Vitals Vital Signs Date Temp Pulse Resp B/P (MAP) Pulse Ox O2 O2 Flow FiO2 Time Delivery Rate 09/30/18 98.6 89 18 104/68 96 Room Air 08:23 (80) 09/27/18 8.0 19:45 Intake and Output 09/29/18 09/29/18 09/30/18 1515:00 23:00 07:00 IntakeIntake Total 440 ml 1850 ml 700 ml OutputOutput Total 350 ml BalanceBalance 440 ml 1500 ml 700 ml Exam General: lying in bed, answering questions appropriately, no acute distress HEENT: Atraumatic, normocephalic. Moist mucous membranes, clear oropharynx Neck: Supple with full range of motion. No rigidity or meningismus Lungs: Clear to auscultation bilaterally no crackles rales or wheezing Heart: Normal S1-S2, Regular rhythm and rate. No murmur, S3, or S4 Abdomen: Soft , nontender, nondistended , bowel sounds are present. No guarding no rebound tenderness Extremities: Dressing clean, slightly bloody. Nontender to palpation. No hematoma or swelling. Peripheral pulses, toe wiggle, and sensation intact. Results Results 24hrs Laboratory Tests Test 09/29/18 19:09 09/30/18 04:46 09/30/18 07:15 Hemoglobin 9.7 #L 10.0 L Hematocrit 28.5 #L 29.5 L White Blood Count 10.5 Red Blood Count 3.26 #L Mean Corpuscular Volume 90.5 Mean Corpuscular Hemoglobin 30.7 Mean Corpuscular 33.9 Hemoglobin Concent Red Cell Distribution Width 14.0 Platelet Count 149 Mean Platelet Volume 9.9 Immature Granulocytes % 0.700 H Neutrophils % 78.8 H Lymphocytes % 12.3 L Monocytes % 7.0 Eosinophils % 0.8 Basophils % 0.4 Nucleated Red Blood Cells % 0.0 Immature Granulocytes # 0.070 H Neutrophils # 8.3 H Lymphocytes # 1.3 Monocytes # 0.7 Eosinophils # 0.1 Basophils # 0.0 Nucleated Red Blood Cells # 0.0 Sodium Level 142 Potassium Level 4.2 Chloride Level 112 H Carbon Dioxide Level 24 Anion Gap 6 Blood Urea Nitrogen 6 L Creatinine 0.39 L Est Glomerular Filtrat > 60 Rate mL/min Glucose Level 164 Calcium Level 8.5 Phosphorus Level 2.4 L Magnesium Level 1.9 Lab Scanned Report BLOOD TRANSFUSION Medications Medication Current Medications IV Flush (NS 3 ml) 3 ml PER PROTOCOL IV Last administered on 09/26/18 21:27; Admin Dose 3 ML; Start 09/25/18 at 00:30 Ondansetron HCl (Zofran Inj) 4 mg Q6H PRN IV NAUSEA/VOMITING Last administered on 09/30/18 11:02; Admin Dose 4 MG; Start 09/25/18 at 00:30 Acetaminophen (Tylenol Tab) 650 mg Q6H PRN PO .PAIN 1-3 OR TEMP Last administered on 09/28/18 08:25; Admin Dose 650 MG; Start 09/25/18 at 00:30 Morphine Sulfate (morphine) 3 mg Q3H PRN IV SEVERE PAIN LEVEL 7-10 Last administered on 09/29/18 10:36; Admin Dose 3 MG; Start 09/27/18 at 21:00 Acetaminophen/ Hydrocodone Bitart ([place] (5/325)) 1 tab Q3H PRN PO MODERATE PAIN LEVEL 4-6 Last administered on 09/30/18 11:02; Admin Dose 1 TAB; Start 09/27/18 at 21:00 Docusate Sodium (Colace) 100 mg BID PO Last administered on 09/30/18 08:47; Admin Dose 100 MG; Start 09/29/18 at 23:00 Polyethylene Glycol (Miralax) 17 gm DAILY PO Last administered on 09/30/18 08:47; Admin Dose 17 GM; Start 09/29/18 at 23:00 Rivaroxaban (Xarelto) 10 mg DAILY PO Last administered on 09/30/18 12:03; Admin Dose 10 MG; Start 09/30/18 at 10:00 DENTON LUCAS MD September 30, 2018 12:55
[2018-09-30 15:11] VITALS: BP 101/55; PULSE 84; RESP 18
[2018-09-30 19:25] VITALS: BP 119/54; PULSE 101; RESP 20
[2018-10-01 02:00] VITALS: BP 112/56; PULSE 78; RESP 20
[2018-10-01 07:52] VITALS: BP 119/58; PULSE 68; RESP 19
[2018-10-01] MEDS: RIVAROXABAN 10 MG TABLET PO SCH (08:36)
[2018-10-01] MEDS: DOCUSATE SODIUM 100 MG CAP PO SCH (08:36)
[2018-10-01] MEDS: POLYETHYLENE GLYCOL 17 GM PACKET PO SCH (08:37)
[2018-10-01] MEDS: HYDROCODONE/APAP (5/325) TAB PO PRN (10:01)
[2018-10-01] MEDS ORDERED: HYDR-3601 PO (10:35)
[2018-10-01] MEDS ORDERED: RIVA10TA PO (10:35)
[2018-10-01] MEDS ORDERED: SENN-120 PO (10:35)
--- NOTE | 2018-10-01 10:42 | PDOCDIS ---
Discharge Instructions DIAGNOSIS Discharge Diagnosis L femoral neck fracture s/p hemiarthroplasty CONDITION [id number] Patient Condition: [id number] Good HOME CARE INSTRUCTIONS: [id number] Diet Instructions: [id number] Regular ACTIVITY: [id number] Activity Restrictions: [id number] Slowly Increase Activity Rest between Activity Avoid heavy lifting No Sexual Activity Do not Drive Do not operate Machinery Do not operate Power Tool Avoid Heavy Housework Keep Limb Elevated Partial Weight Bearing [id number] Bathing Restrictions: [id number] Shower FOLLOW UP/APPOINTMENTS Follow-up Plan 1. Stop taking your blood pressure medicine until you see your primary care doctor. 2. Make an appointment with your primary care doctor in 1-2 weeks. 3. For pain, take [id number] ibuprofen 800 mg or tylenol 650 mg every 4 hours. 4. For severe pain not responsive to the above, take [place]. Do not drink alcohol or drive after taking [place]. 5. Continue normal activity. Walk at least twice daily. Avoid strenuous e xertion. 6. Keep the hip bandage clean and dry. Some bleeding is to be expected and is not a cause for concern. Do not get the bandage wet. 7. Make an appointment with Dr. Ava Del Toro ([id number] [facility] [facility] [address], [place] [address]. ) in 2 weeks. 8. Take 14 more days of rivaroxaban (Xarelto, a blood thinner) as prescribed. This is to prevent blood clots. You may bruise and bleed more easily while on this medication. DENTON LUCAS MD October 01, 2018 10:42
[2018-10-01 14:55] VITALS: BP 121/62; PULSE 72; RESP 18
--- NOTE | 2018-10-01 16:50 | DS ---
Date/Time of Note Date/Time of Note DATE: 10/01/18 TIME: 16:48 Discharge Summary Admission/Discharge Info Admit Date/Time Sep 25, 2018 at 00:16 Discharge Date/Time October 01, 2018 at 15:55 Discharge Diagnosis L femoral neck fracture s/p hemiarthroplasty Patient Condition: Good Consults Dr. Del Toro, orthopedic surgery Procedures L hip hemiarthroplasty Hx of Present Illness This is a 58-year-old woman with no significant past medical history who initially presented to [facility] complaining of left lower extremity pain status post fall. Patient initially fell 3 weeks ago hurting her left leg. An x-ray was done by her PCP and patient has been taking tramadol for pain. She fell again yesterday exacerbating pain on the same left lower extremity. X- ray and CT pelvis at [facility] shows left femoral neck fracture. Patient was transferred to [facility] for insurance reasons. Hospital Course She was taken to the OR by Dr. Del Toro for L hip hemiarthroplasty. Postoperative course unremarkable. She did require 2u pRBC for postoperative anemia. Walking well with PT. Will discharge on 10 days of rivaroxaban. Home Meds Active Scripts Sennosides* (Senna Lax*) 8.6 Mg Tablet, 1 TAB PO BID, #30 TAB Prov:DENTON LUCAS MD 10/01/18 Hydrocodone Bit-Acetaminophen (Hydrocodone Bit-APAP) 5-325MG Tablet, 1 TAB PO Q3H PRN for MODERATE PAIN LEVEL 4-6, #14 TAB Prov:DENTON LUCAS MD 10/01/18 Rivaroxaban* (Xarelto*) 10 Mg Tablet, 10 MG PO DAILY, #14 TAB Prov:DENTON LUCAS MD 10/01/18 Follow-up Plan 1. Stop taking your blood pressure medicine until you see your primary care doctor. 2. Make an appointment with your primary care doctor in 1-2 weeks. 3. For pain, take [id number] ibuprofen 800 mg or tylenol 650 mg every 4 hours. 4. For severe pain not responsive to the above, take [place]. Do not drink alcohol or drive after taking [place]. 5. Continue normal activity. Walk at least twice daily. Avoid strenuous exertion. 6. Keep the hip bandage clean and dry. Some bleeding is to be expected and is not a cause for concern. Do not get the bandage wet. 7. Make an appointment with Dr. Ava Del Toro ([id number] [facility] [address], [place] [address]. ) in 2 weeks. 8. Take 14 more days of rivaroxaban (Xarelto, a blood thinner) as prescribed. This is to prevent blood clots. You may bruise and bleed more easily while on this medication. Primary Care Provider Not On Staff Doctor Time spent on discharge: > 30 minutes Pending Labs Laboratory Tests Test 10/01/18 08:49 White Blood Count 9.5 10^3/ul (4.8-10.8) Red Blood Count 3.22 10^6/ul (4.20-5.40) Hemoglobin 9.8 g/dl (12.0-16.0) Hematocrit 29.4 % (37.0-47.0) Mean Corpuscular Volume 91.3 fl (82.0-101.0) Mean Corpuscular Hemoglobin 30.4 pg (29.0-33.0) Mean Corpuscular Hemoglobin Concent 33.3 g/dl (32.0-37.0) Red Cell Distribution Width 14.4 % (11.5-14.5) Platelet Count 220 10^3/UL (140-415) Mean Platelet Volume 10.0 fl (7.4-10.4) Immature Granulocytes % 0.400 % (0.001-0.429) Neutrophils % 79.1 % (39.0-77.0) Lymphocytes % 12.9 % (15.0-51.0) Monocytes % 5.3 % (0.0-11.0) Eosinophils % 2.0 % (0.0-7.0) Basophils % 0.3 % (0.0-2.0) Nucleated Red Blood Cells % 0.0 /100WBC (0.0-0.0) Immature Granulocytes # 0.040 10^3/ul (0.0-0.031) Neutrophils # 7.5 10^3/ul (1.6-7.5) Lymphocytes # 1.2 10^3/ul (0.8-2.9) Monocytes # 0.5 10^3/ul (0.3-0.9) Eosinophils # 0.2 10^3/ul (0.0-0.5) Basophils # 0.0 10^3/ul (0.0-0.1) Nucleated Red Blood Cells # 0.0 10^3/ul (0.0-0.0) DENTON LUCAS MD October 01, 2018 16:50
== END 2018-10-01 15:55 | disposition home or self-care (01) | DRG 470 ==
LOC: UNDOADMIN 23:12 → MS1 23:12
PROVIDERS: ADMIT Internal Medicine; ATTEND Internal Medicine
PROC: 0SRS0JZ Replacement of Left Hip Joint, Femoral Surface with Synthetic Substitute, Open Approach (ICD-10-PCS; principal; 2018-09-27 15:30)
DX: S72.002A Fracture of unspecified part of neck of left femur, initial encounter for closed fracture (principal); Z68.1 Body mass index [BMI] 19.9 or less, adult; D62 Acute posthemorrhagic anemia; Q78.2 Osteopetrosis; R63.6 Underweight; I10 Essential (primary) hypertension; W19.XXXA Unspecified fall, initial encounter
CPT/HCPCS: 36430; 73500; 73510; 74176; 80048; 80053; 83735; 84100; 85014; 85018; 85025; 86850; 86900; 86901; 86920; 88304; 88311; 97110; 97116; 97161; 97167; 97530; C1776; J0690; J1644; J1650; J2250; J2270; J2274; J2405; J3010; J3370; J7040; J7042; J7120; P9016; P9045